=== PATIENT | male | born 1955 | race Caucasian/White ===

== ENCOUNTER 2018-08-04 11:10 | Emergency (ER) | payer OTHER ==
[2018-08-04] MEDS ORDERED: TETRACAINE 0.5% OPHTH SOLN 2 ML BOTTLE ONE (11:28)
[2018-08-04] MEDS ORDERED: FLUORESCEIN NA 1 EA STRIP ONE (11:29)
--- NOTE | 2018-08-04 11:30 | PDOC ---
History of Present Illness - General Chief Complaint: Eye Problem Stated Complaint: RIGHT EYE REDNESS & PAIN Time Seen by Provider: 08/04/18 11:12 - History of Present Illness Initial Comments: 08/04/18 11:53 63yo male presents c/o 3 days of R eye pain and tearing. States he was doing push-ups on a carpet and then laid on the carpet. States after laying on the carpet he felt a pain to his eye. States he tried to wash his eye out with water at home and was tearing and thought his pain would resolve. Pt states he kept hoping after sleeping and tearing the eye would improve. No blurred vision or change in vision. No loss of vision. No aguilar. No neck pain. Denies trauma. No other complaints. Pmhx: aortic aneurysm thorax repair Pshx: aortic aneurysm repair from root Allergies: nkda Past History - Past Medical History Allergies/Adverse Reactions: Allergies Allergy/AdvReac Type Severity Reaction Status Date / Time No Known Allergies Allergy Verified 08/04/18 11:11 Home Medications: Ambulatory Orders Doxazosin Mesylate 08/04/18 Erythromycin 0.5% Eye Ointment [Erythromycin 0.5% Eye Ointment -] 1 applic OD QID 5 Days #1 tube 08/04/18 Metoprolol Succinate [Toprol Xl] 25 mg PO DAILY 08/04/18 Cardiac Disorders: Yes (THORACIC AORTIC ANEURYSM) COPD: No Disorders: Yes (BPH) - Surgical History Cardiac Surgery: Yes (AORTIC ANEURYSM REPAIR) - Suicide/Smoking/Psychosocial Hx Smoking History: Never smoked Hx Alcohol Use: Yes Drug/Substance Use Hx: No Substance Use Type: None Review of Systems - Review of Systems Able to Perform ROS?: Yes Is the patient limited Kazakh proficient: No Constitutional: No: Chills, Fever HEENTM: Yes: Eye Pain, Tearing. No: Blurred Vision, Recent change in vision, Double Vision, Nose Congestion Respiratory: No: Cough, Shortness of Breath Cardiac (ROS): No: Chest Pain, Edema ABD/GI: No: Diarrhea, Nausea, Vomiting, Abdominal cramping All Other Systems: Reviewed and Negative *Physical Exam - Vital Signs Last Vital Signs Temp Pulse Resp BP Pulse Ox 97.5 F L 84 16 152/90 97 08/04/18 11:11 08/04/18 11:11 08/04/18 11:11 08/04/18 11:11 08/04/18 11:11 - Physical Exam General Appearance: Yes: Nourished, Appropriately Dressed. No: Apparent Distress HEENT: positive: EOMI, ROGELIO, Other (R eye sclera is injected, small corneal abrasion seen with the bejarano lamp to the R eye the lower L part of the corneal, small piece of white cotton removed with a q-tip). negative: Scleral Icterus (R ), Scleral Icterus (L) Neck: positive: Supple Respiratory/Chest: positive: Lungs Clear, Normal Breath Sounds, Respiratory Distress Cardiovascular: positive: Regular Rhythm, Regular Rate, S1, S2. negative: Edema Gastrointestinal/Abdominal: positive: Soft. 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 discussed calling ophthomology today to schedule follow up -answered all questions -stable for d/c to home *DC/Admit/Observation/Transfer Diagnosis at time of Disposition: Corneal abrasion, right, Foreign body in eyeball, right - Discharge Dispostion Disposition: HOME Condition at time of disposition: Stable Decision to Admit order: No - Prescriptions Prescriptions: Erythromycin 0.5% Eye Ointment [Erythromycin 0.5% Eye Ointment -] 1 applic OD QID 5 Days #1 tube - Referrals Referrals: Jose Cortez MD [Primary Care Provider] - Zaki Portillo MD [Staff Physician] - - Patient Instructions Printed Discharge Instructions: DI for Corneal Abrasion Additional Instructions: Please apply the medicine to your Right eye 4x per day. Please make an appointment to see the ophthomologist in the next 1-2 days. Please also follow up with your PMD. Please return to the ED with any further concerns or complaints. - Post Discharge Activity
[2018-08-04 11:31] VITALS: BP 152/90; PULSE 84; TEMP 97.5; BMI 32.1
[2018-08-04] MEDS ORDERED: ERYTHROMYCIN 0.5% OPHTHALMIC OINTMENT 3.5 GM TUBE OD ONE (11:44)
[2018-08-04] MEDS ORDERED: ERYTHROMYCIN 0.5% OPHTHALMIC OINTMENT 3.5 GM TUBE ONE (11:44)
[2018-08-04] MEDS ORDERED: TETRACAINE 0.5% OPHTH SOLN 2 ML BOTTLE OD ONE (11:45)
== END 2018-08-04 11:55 | disposition home or self-care (01) ==
LOC: FER 11:10
DX: T15.01XA Foreign body in cornea, right eye, initial encounter (principal); S00.251A Superficial foreign body of right eyelid and periocular area, initial encounter; X58.XXXA Exposure to other specified factors, initial encounter; Y93.9 Activity, unspecified; Y92.9 Unspecified place or not applicable
CPT/HCPCS: 99281-25

== ENCOUNTER 2020-09-03 18:14 | Inpatient (IN) | payer OTHER ==
[2020-09-03 18:18] VITALS: BMI 31.6
[2020-09-03] MEDS ORDERED: AZITHROMYCIN IVPB 500 MG in DEXTROSE 5%-WATER - 250 ML IVPB ONE (20:48)
[2020-09-03] MEDS ORDERED: AZITHROMYCIN 500 MG VIAL IVPB ONE (20:51)
[2020-09-03] MEDS ORDERED: SODIUM CHLORIDE 0.9% 500 ML INFUS.BAG IV ONE (21:22)
[2020-09-03 22:10] LABS: BASO % 3.6 % (0-2.0); EOS % 0.2 % (0-4.5); HEMATOCRIT 37.3 % (35.4-49); HEMOGLOBIN 12.5 GM/dl (11.7-16.9); LYMPH % 12.2 % (8-40); MCH 30.5 pg (25.7-33.7); MCHC 33.4 g/dl (32.0-35.9); MEAN CELL VOLUME 91.3 fl (80-96); MEAN PLT VOLUME 8.1 fl (7.5-11.1); MONO % 5.6 % (3.8-10.2); NEUT % 78.4 % (42.8-82.8); PLATELET COUNT 238 K/MM3 (134-434); RBC 4.09 M/mm3 (4.00-5.60); RDW 13.4 % (11.9-15.9); WHITE BLOOD COUNT 5.8 K/mm3 (4.0-10.8)
[2020-09-03 22:24] LABS: INR 1.42 (0.82-1.09); PROTHROMBIN TIME (PATIENT) 15.5 SEC (10.2-13.0)
[2020-09-03] MEDS ORDERED: DEXAMETHASONE SOD PHOSPHATE 10 MG/1 ML VIAL IVPUSH ONE (22:28)
[2020-09-03 22:42] LABS: ALBUMIN 3.2 g/dl (3.4-5.0); BILIRUBIN,TOTAL 1.6 mg/dl (0.2-1); CREATININE 1.1 mg/dl (0.55-1.3); TOT PROT 6.3 g/dl (6.4-8.2)
[2020-09-03] MEDS ORDERED: DEXAMETHASONE SOD PHOSPHATE 10 MG/1 ML VIAL ONE (22:48)
[2020-09-03 22:49] LABS: POTASSIUM 4.6 mmol/L (3.5-5.1)
[2020-09-04] MEDS: ENOXAPARIN NA (PORCINE) 40 MG/0.4 ML DISP.SYRIN SQ SCH ×2 (01:23→11:06)
[2020-09-04 08:31] LABS: BASO % 0.1 % (0-2.0); HEMOGLOBIN 11.9 GM/dL (11.7-16.9); MCH 30.6 pg (25.7-33.7); MEAN CELL VOLUME 89.9 fl (80-96); MEAN PLT VOLUME 8.2 fl (7.5-11.1); MONO % 4.5 % (3.8-10.2); NEUT % 78.4 % (42.8-82.8); PLATELET COUNT 249 K/MM3 (134-434); RBC 3.89 M/mm3 (4.00-5.60); RDW 14.1 % (11.9-15.9); WHITE BLOOD COUNT 3.4 K/mm3 (4.0-10.0)
[2020-09-04 08:38] LABS: INR 1.18 (0.83-1.09); PROTHROMBIN TIME (PATIENT) 14.2 SEC (9.7-13.0)
[2020-09-04 08:39] LABS: ACTIVATED PTT 35.1 SECONDS (25.2-36.5)
[2020-09-04 08:44] LABS: CHLORIDE 103 mmol/L (98-107); POTASSIUM 4.1 mmol/L (3.5-5.1); SODIUM 137 mmol/L (136-145)
[2020-09-04 08:46] LABS: CALCIUM 8.6 mg/dL (8.5-10.1)
[2020-09-04 08:47] LABS: ALBUMIN 3.1 g/dl (3.4-5.0); ANION GAP 8 MMOL/L (8-16); CO2 26 mmol/L (21-32); GLUCOSE,RANDOM 133 mg/dL (74-106); MAGNESIUM 2.5 mg/dL (1.8-2.4)
[2020-09-04 08:50] LABS: SGOT/AST 25 U/L (15-37); SGPT/ALT 29 U/L (13-61)
[2020-09-04 08:51] LABS: BILIRUBIN,TOTAL 0.4 mg/dL (0.2-1); TOT PROT 6.8 g/dl (6.4-8.2)
[2020-09-04 08:53] LABS: ALK PHOS 92 U/L (45-117); N-TERMINAL BNP 160.5 pg/ml (5-125)
[2020-09-04 09:04] LABS: LDH 269 U/L (87-246)
[2020-09-04] MEDS: DEXAMETHASONE SOD PHOSPHATE 4 MG/1 ML VIAL IVPUSH SCH (11:06)
[2020-09-04] MEDS ORDERED: DOXAZOSIN MESYLATE 2 MG TABLET PO SCH (22:00)
[2020-09-05 09:53] LABS: INR 1.16 (0.83-1.09); PROTHROMBIN TIME (PATIENT) 14.2 SEC (9.7-13.0)
[2020-09-05 10:13] LABS: ACTIVATED PTT 25.3 SECONDS (25.2-36.5)
[2020-09-05] MEDS: DEXAMETHASONE SOD PHOSPHATE 4 MG/1 ML VIAL IVPUSH SCH (11:10)
[2020-09-05] MEDS: ENOXAPARIN NA (PORCINE) 40 MG/0.4 ML DISP.SYRIN SQ SCH (11:11)
[2020-09-05] MEDS: FAMOTIDINE 20 MG TABLET PO SCH ×2 (13:34→13:41)
[2020-09-05 15:46] VITALS: BP 140/73; PULSE 65; TEMP 98.1
== END 2020-09-05 16:04 | disposition home or self-care (01) | DRG 137 ==
LOC: FER 18:14 → J5S 09-04 03:45
PROVIDERS: ADMIT Internal Medicine; ATTEND Internal Medicine
PROC: 8E0ZXY6 Isolation (ICD-10-PCS; principal; 2020-09-03)
DX: U07.1 COVID-19 (principal); J12.89 Other viral pneumonia; I10 Essential (primary) hypertension; N40.0 Benign prostatic hyperplasia without lower urinary tract symptoms; M17.10 Unilateral primary osteoarthritis, unspecified knee; D72.819 Decreased white blood cell count, unspecified; R06.02 Shortness of breath
CPT/HCPCS: 36415; 71046-TC-FY; 80053; 82550; 82728; 83615; 83735; 83880; 84100; 84484; 85025; 85379; 85384; 85610; 85730; 86140; 87040; 87086; 93005; 99285-25; C9803; J1100; U0003

== ENCOUNTER 2024-04-29 13:58 | Emergency (ER) | payer MEDICARE, OTHER ==
[2024-04-29 15:04] VITALS: BP 117/79; PULSE 78; RESP 20; TEMP 97.5; BMI 33.3
[2024-04-29] MEDS: SODIUM CHLORIDE 0.9% 500 ML INFUS.BAG IV ONE (15:12)
[2024-04-29 15:20] LABS: INR 1.09 (0.83-1.09); PROTHROMBIN TIME (PATIENT) 12.4 SEC (9.7-13.0)
[2024-04-29 15:22] LABS: ACTIVATED PTT 31.2 SECONDS (25.2-36.5); HEMATOCRIT 42.7 % (35.4-49); HEMOGLOBIN 13.8 G/dL (11.7-16.9); MCH 31.3 pg (25.7-33.7); MCHC 32.3 g/dl (32.0-35.9); MEAN CELL VOLUME 97.1 fl (80-96); PLATELET COUNT 238.8 10^3/uL (134-434); WHITE BLOOD COUNT 5.3 10^3/uL (4.0-10.8)
[2024-04-29 15:33] LABS: ALBUMIN 4.2 g/dl (3.4-5.0); ALK PHOS 54 U/L (45-117); ANION GAP 9 mmol/L (4-13); BILIRUBIN,TOTAL 0.6 mg/dl (0.2-1); CALCIUM 9.2 mg/dl (8.5-10.1); CHLORIDE 104 mmol/L (98-107); CO2 26 mmol/L (21-32); CREATININE 1.2 mg/dl (0.6-1.3); GLUCOSE,RANDOM 115 mg/dl (74-106); SGOT/AST 13 U/L (15-37); SGPT/ALT 16 U/L (7-52); SODIUM 139 mmol/L (136-145); TOT PROT 6.2 g/dl (6.4-8.2)
[2024-04-29 15:52] LABS: PLATELET ESTIMATE ADEQUATE
[2024-04-29 17:16] LABS: HIV INTERPRETATION NEGATIVE (NEGATIVE)
[2024-04-30 00:54] LABS: N-TERMINAL BNP 133.8 pg/ml (5-125)
== END 2024-04-29 18:18 | disposition home or self-care (01) ==
LOC: FER 13:58
DX: R42 Dizziness and giddiness (principal); R11.0 Nausea; R10.13 Epigastric pain; Z20.822 Contact with and (suspected) exposure to COVID-19
CPT/HCPCS: 0241U-QW; 36415; 70496-TC; 70498-TC; 71045-TC-FY; 80053; 80307; 82550; 83690; 83880; 84484; 85027; 85610; 85730; 86803; 87389; 93005; 99285-25